=== PATIENT | female | born 1990 | race Caucasian/White ===

== ENCOUNTER → 2024-09-10 | Outpatient (CLI) | payer BC ==
--- NOTE | 2024-09-10 08:32 | MM ---
Reason for Exam: Clinical finding. Patient History: Menarche at age 16. First Full-Term at age 22. Right ovary removed at age 29. Patient has history of breast feeding. Last menstrual period: 09/10/2024 Tissue Density: The breasts are heterogeneously dense, which may obscure small masses. Findings: Analyzed By CAD. No significant mass, suspicious microcalcification, or other discrete abnormality is seen. Overall Assessment: Incomplete: need additional imaging evaluation, BI-RAD 0 Management: Diagnostic Breast Ultrasound of both breasts. Subareolar and periareolar for pain. [facility], , 09/10/2024 8:29 AM. Electronically signed and approved by: Migue Chavarria M.D. Radiologist
--- NOTE | 2024-09-10 08:46 | USB ---
Reason for Exam: Clinical finding. Patient History: Menarche at age 16. First Full-Term at age 22. Right ovary removed at age 29. Patient has history of breast feeding. Technique: Method: Targeted. Doppler: Color. Patient Position: Supine. Findings: The periareolar of both breasts, the axilla of both breasts and the retroareolar of both breasts were scanned. Targeted bilateral subareolar and periareolar breast ultrasound including scanning of the axilla. No significant duct ectasia. No solid or cystic lesion. No axillary adenopathy. Scattered benign appearing axillary lymph nodes are noted. Overall Assessment: Benign, BI-RAD 2 Management: Screening Mammogram of both breasts at age 42. Unless there is a clinical indication to start sooner. Further clinical management of patient's breast pain. Patient should continue monthly self breast exams. These results should not preclude additional follow-up of suspicious palpable abnormalities. Results were given to the patient verbally at the time of exam. [facility], , 09/10/2024 8:43 AM. Electronically signed and approved by: Migue Chavarria M.D. Radiologist
== END | disposition home or self-care (01) ==
LOC: RADMAMWWP 08:03
PROVIDERS: ATTEND Family Medicine
DX: N64.4 Mastodynia (principal); R92.333 Mammographic heterogeneous density, bilateral breasts
CPT/HCPCS: 77062; 77066